=== PATIENT | male | born 1960 | race Caucasian/White ===

== ENCOUNTER 2018-12-02 05:13 | Day surgery (SDC) | payer MEDICAID ==
[2018-11-24 14:39] LABS: BASOPHILS # (AUTO) 0.1 X10'3 (0-0.2); EOSINOPHILS # (AUTO) 0.2 X10'3 (0-0.9); EOSINOPHILS % (AUTO) 2.1 % (0-6); LYMPHOCYTES # (AUTO) 2.6 X10'3 (1.1-4.8); LYMPHOCYTES % (AUTO) 30.1 % (21-51); MEAN CORPUSCULAR HEMOGLOBIN 30.6 PG (27.0-31.0); MEAN CORPUSCULAR HGB CONC 33.6 g/dL (33.0-36.5); MEAN CORPUSCULAR VOLUME 91.1 FL (78-98); MEAN PLATELET VOLUME 7.3 FL (7.4-10.4); MONOCYTES # (AUTO) 0.6 X10'3 (0-0.9); NEUTROPHILS # (AUTO) 5.3 X10'3 (1.8-7.7); NEUTROPHILS % (AUTO) 59.8 % (42-75); PRE OP HEMATOCRIT 46.3 % (42.0-52.0); PRE OP HEMOGLOBIN 15.6 g/dL (14.0-17.9); PRE OP PLATELET COUNT 245 X10'3 (140-440); RED BLOOD COUNT 5.08 X10'6 (4.70-6.10); RED CELL DISTRIBUTION WIDTH 13.8 % (11.5-14.5)
[2018-11-24 14:50] LABS: PRE OP INR 1.1 INR; PRE OP PROTIME 10.7 SECONDS (9.0-12.0)
[2018-11-24 14:52] LABS: ALBUMIN 3.4 G/DL (3.4-5.0); ALKALINE PHOSPHATASE 79 IU/L (46-116); BLOOD UREA NITROGEN 17 MG/DL (7-18); BUN/CREATININE RATIO 14.8 (5.4-32.0); CALCIUM 8.3 MG/DL (8.5-10.1); CHLORIDE 105 MMOL/L (99-107); CREATININE 1.15 MG/DL (0.60-1.10); PRE OP ALT 15 U/L (30-65); PRE OP ANION GAP 7 (8-16); PRE OP AST 11 U/L (10-37); PRE OP BILIRUB, TOTAL 0.4 MG/DL (0.0-1.0); PRE OP GLUCOSE 119 MG/DL (70-104); PRE OP POTASSIUM 3.8 MMOL/L (3.4-5.1); PRE OP SODIUM 138 MMOL/L (135-145); TOTAL CARBON DIOXIDE 26.4 MMOL/L (24-32); TOTAL PROTEIN 6.7 G/DL (6.4-8.2); eGFR 66 ML/MIN
[~2018-12-02] VITALS: Ht 180.3 cm; Wt 114.8 kg
[~2018-12-02 05:13] MED LIST: APIX5TAB3 PO; ASPI-1053 PO; ASPI-1265 PO; ATOR40TA PO; DRON400T2 PO; HYDR12.5 PO; LISI40TA4 PO; METO50TA7 PO; ringers solution, lacted 1,000 ML IV SCH
[2018-12-02 05:30] VITALS: BP 136/84
[2018-12-02] MEDS ORDERED: cefazolin/dext.iso 2gm/100 ML IV ONE (05:30)
[2018-12-02] MEDS ORDERED: famotidine 20mg tablet PO ONE (05:30)
[2018-12-02] MEDS ORDERED: DOCUMENT DATE & TIME OF BETA-BLOCKER PO ONE (05:30)
[2018-12-02] MEDS ORDERED: vancomycin inj 1,500 MG in normal saline 300ml IV soln IV ONE (05:30)
[2018-12-02] MEDS ORDERED: BUPIVAcaine/PF 2.5 mg/ml (0.25%) 30ml vial ONE (06:51)
[2018-12-02] MEDS ORDERED: triamcinolone acetonide 40mg/ml inj ONE (06:51)
[2018-12-02] MEDS ORDERED: sevoflurane 250ml liquid IH ONE (07:15)
[2018-12-02] MEDS ORDERED: midazolam 2 mg/2 ml injection ONE (07:25)
[2018-12-02] MEDS ORDERED: fentaNYL /PF 50mcg/ml 5ml ampule ONE (07:26)
[2018-12-02] MEDS ORDERED: ringers solution, lacted 1,000 ML IV SCH (08:12)
[2018-12-02] MEDS ORDERED: morphine 4 MG/ML inj SYRINge IV PRN ×2 (08:15)
[2018-12-02] MEDS ORDERED: ondansetron/PF 4mg/2ml inj IV PRN (08:15)
[2018-12-02] MEDS ORDERED: meperidine/PF 25mg/ml syringe IV PRN ×3 (08:15)
[2018-12-02] MEDS ORDERED: proCHLORperazine 10 MG/2 ml inj IV PRN (08:15)
[2018-12-02] MEDS ORDERED: LIDOcaine 2% (20mg/ml) 5ml vial ONE (08:37)
[2018-12-02] MEDS ORDERED: ketorolac trometh. 30mg/ml inj. ONE (08:37)
[2018-12-02] MEDS ORDERED: propofol inj 20 ML IV ONE (08:37)
[2018-12-02] MEDS ORDERED: dexamethasone sod phosphate 4mg/ml inj. ONE (08:38)
[2018-12-02 09:00] VITALS: BP 129/91
--- NOTE | 2018-12-02 09:00 | NUR ---
Received from OR via BED, accompanied by Anesthesiologist DR CASAREZ and report given by Anesthesiolgist. PATIENT A&OX4, DENIES PAIN, V/S WNL, NEUROVASCULAR CHECKS INTACT, SCD ON, LEFT KNEE DRESSING CDI ELEVATED WITH ICE BAG APPLIED. 18G LUE.
[2018-12-02 09:10] VITALS: BP 122/89
[2018-12-02 09:20] VITALS: BP 127/81
[2018-12-02 09:30] VITALS: BP 125/79
--- NOTE | 2018-12-02 09:30 | NUR ---
PATIENT A&OX4, DENIES PAIN, V/S WNL, NEUROVASCULAR CHECKS INTACT, SCD OFF, LEFT AND RIGHT KNEE DRESSING CDI ELEVATED WITH ICE BAG APPLIED. 18G ERICA D/C. . I HAVE REVIEWED D/C INSTRUCTIONS WITH PATIENT AND FAMILY AND THEY HAVE VERBALIZED UNDERSTANDING. PATIENT D/C HOME WITH FAMILY TO TRANSPORT AND ALL BELONGINGS..
== END 2018-12-02 09:30 | disposition home or self-care (01) ==
LOC: PAS 05:13
PROVIDERS: ATTEND Orthopaedic Surgery
DX: S83.232A Complex tear of medial meniscus, current injury, left knee, initial encounter (principal); S83.282A Other tear of lateral meniscus, current injury, left knee, initial encounter; S83.231A Complex tear of medial meniscus, current injury, right knee, initial encounter; S83.281A Other tear of lateral meniscus, current injury, right knee, initial encounter; M22.42 Chondromalacia patellae, left knee; M22.41 Chondromalacia patellae, right knee; M22.8X2 Other disorders of patella, left knee; M22.8X1 Other disorders of patella, right knee; M17.0 Bilateral primary osteoarthritis of knee; I48.91 Unspecified atrial fibrillation; Y92.89 Other specified places as the place of occurrence of the external cause; Y93.89 Activity, other specified; X58.XXXA Exposure to other specified factors, initial encounter; Z98.890 Other specified postprocedural states; Y99.8 Other external cause status; Z87.891 Personal history of nicotine dependence; Z79.899 Other long term (current) drug therapy; Z88.8 Allergy status to other drugs, medicaments and biological substances
CPT/HCPCS: 29873; 29879; 29880; 36415; 71046; 80053; 82948; 85025; 85610; 85730; J1100; J1885; J2001; J2250; J2704; J3010; J3301; J3370; J3490; A6250; A6449; A7000; J7120

== ENCOUNTER 2018-12-15 12:56 | Outpatient (CLI) | payer MEDICAID ==
[~2018-12-15 12:56] MED LIST changes: -ASPI-1053 PO; -ringers solution, lacted 1,000 ML IV SCH
== END 2018-12-15 23:59 | disposition home or self-care (01) ==
LOC: VAS 12:56
PROVIDERS: ATTEND Orthopaedic Surgery
DX: R60.0 Localized edema (principal); M79.605 Pain in left leg; S83.231D Complex tear of medial meniscus, current injury, right knee, subsequent encounter; S83.271D Complex tear of lateral meniscus, current injury, right knee, subsequent encounter; S83.232D Complex tear of medial meniscus, current injury, left knee, subsequent encounter; S83.272D Complex tear of lateral meniscus, current injury, left knee, subsequent encounter; I10 Essential (primary) hypertension; J45.909 Unspecified asthma, uncomplicated; Z87.891 Personal history of nicotine dependence; X58.XXXD Exposure to other specified factors, subsequent encounter
CPT/HCPCS: 93971